=== PATIENT | male | born 1985 | race Caucasian/White ===

== ENCOUNTER 2016-10-08 21:03 | Inpatient (IN) ==
[2016-10-09] MEDS ORDERED: Acetaminophen 325 MG TABLET PO PRN (00:05)
[2016-10-09] MEDS ORDERED: Naloxone 0.4 MG/ML INJ IVP PRN (00:05)
[2016-10-09] MEDS ORDERED: Ondansetron 4 MG/2 ML VIAL IVP PRN (00:05)
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
[2016-10-09] MEDS: 0.9 % Sodium Chloride 1,000 ML IVC SCH (00:52)
[2016-10-09 02:36] LABS: BUN/Creatinine Ratio 9 (6-26); Blood Urea Nitrogen 12 mg/dL (8-26); Carbon Dioxide 26 mEq/L (19-29); Chloride 105 mEq/L (98-109); Potassium 4.2 mEq/L (3.5-4.5); Sodium 141 mEq/L (136-145)
[2016-10-09 02:37] LABS: Alanine Aminotransferase 27 Units/L (0-55); Albumin 3.7 g/dL (3.5-5.0); Albumin/Globulin Ratio 1.1 (1.1-2.2); Alkaline Phosphatase 160 Units/L (38-126); Aspartate Amino Transferase 28 Units/L (5-34); Bilirubin,Total 0.5 mg/dL (0.2-1.2); Calcium 9.2 mg/dL (8.6-10.8); Globulin 3.5 g/dL (2.4-3.5); Glucose 100 mg/dL (70-99); Osmolality,Calculated 292 (280-300); Total Protein 7.2 g/dL (6.0-8.3); eGFR For African Americans > 60 (> 60); eGFR For Non-African Americans > 60 (> 60)
[2016-10-09] MEDS: *HR* Heparin 5,000 UNIT/ML VIAL SQ SCH ×2 (10:27→15:49)
[2016-10-09] MEDS: Folic Acid 1 MG TABLET PO SCH (10:27)
[2016-10-09] MEDS: Thiamine (B-1) 100 MG TABLET PO SCH (10:27)
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
--- NOTE | 2016-10-09 15:34 | Electrocardiograph Report ---
[place] [id number] Test Date: 2016-10-09 Pat Name: Victor M Reid Department: 111 Room: [facility] Gender: M Computer Numeric Control Setter: [id number] : 1985 Requested By: Ward Dee Order Number: [id number] Reading MD: Daisha Aviles Measurements Intervals [place] Rate: 84 P: 60 ND: 138 QRS: 61 QRSD: 86 T: 33 QT: 355 QTc: 396 Interpretive Statements SINUS RHYTHM Electronically Signed On 10-09-2016 15:32:43 EDT by Daisha Aviles
[2016-10-09] MEDS: *HR* OxyCODONE Immed Rel 15 MG TABLET PO PRN (20:08)
[2016-10-10] MEDS: *HR* Heparin 5,000 UNIT/ML VIAL SQ SCH ×3 (00:25→17:20)
[2016-10-10] MEDS: 0.9 % Sodium Chloride 1,000 ML IVC SCH ×3 (01:42→14:37)
[2016-10-10 02:18] LABS: BUN/Creatinine Ratio 15 (6-26); Blood Urea Nitrogen 17 mg/dL (8-26); Calcium 8.7 mg/dL (8.6-10.8); Carbon Dioxide 25 mEq/L (19-29); Chloride 104 mEq/L (98-109); Glucose 91 mg/dL (70-99); Osmolality,Calculated 283 (280-300); Potassium 4.2 mEq/L (3.5-4.5); Sodium 136 mEq/L (136-145); eGFR For African Americans > 60 (> 60); eGFR For Non-African Americans > 60 (> 60)
[2016-10-10] MEDS: *HR* OxyCODONE Immed Rel 15 MG TABLET PO PRN ×3 (05:27→19:00)
[2016-10-10] MEDS: Folic Acid 1 MG TABLET PO SCH (10:12)
[2016-10-10] MEDS: Thiamine (B-1) 100 MG TABLET PO SCH (10:12)
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
--- NOTE | 2016-10-10 13:59 | Event Note ---
Date of Encounter: 10/10/16 Time of Encounter: 13:53 Patient's mother called and informed RN that her son called her few minutes back. Patient mother was concerned about patient's safety as he told her that he would like to " kill " himself. I along with charge nurse and patient's nurse went to patient's room and asked him regarding his conversation. Patient denies any suicidal thoughts or patient denies that he is going to kill himself. Plan: We will get psychiatry opinion I spoke to psychiatrist siphon operator. Psych team will come and evaluate patient. Since we do not have any male psychiatry inpatient bed. If psych team feels that patient needs psych management then we will transfer this patient to other psychiatric facility. Patient is medically clear
[2016-10-10] MEDS ORDERED: Haloperidol Lactate 5 MG/ML VIAL IVP ONE (20:24)
[2016-10-11] MEDS: *HR* OxyCODONE Immed Rel 15 MG TABLET PO PRN ×3 (01:01→13:13)
[2016-10-11] MEDS: *HR* Heparin 5,000 UNIT/ML VIAL SQ SCH ×2 (01:02→10:29)
[2016-10-11 03:44] VITALS: BP 144/95
[2016-10-11] MEDS: 0.9 % Sodium Chloride 1,000 ML IVC SCH (04:39)
[2016-10-11 07:56] LABS: Basophils % 0.2 %; Eosinophils % 0.2 %; Hematocrit 43.6 % (37.5-50.1); Hemoglobin 14.5 g/dL (12.9-16.9); Immature Granulocytes % 0.2 % (0-4); Lymphocytes # 0.5 K/mcL (0.6-4.6); Lymphocytes % 8.4 %; Mean Corpuscular HGB Conc 33.3 g/dL (31.6-35.5); Mean Corpuscular Hemoglobin 27.8 pg (28.0-33.3); Mean Corpuscular Volume 83.5 fL (83.0-100.0); Mean Platelet Volume 10.1 fL (9.4-12.4); Monocytes # 0.5 K/mcL (0.0-1.3); Monocytes % 8.4 %; Platelet Count 185 K/mcL (140-400); Red Blood Count 5.22 M/mcL (4.19-5.50); Red Cell Distribution Width 13.4 % (11.5-14.5); Segmented Neutrophils % 82.6 %
[2016-10-11 08:33] LABS: Alanine Aminotransferase 30 Units/L (0-55); Albumin 3.4 g/dL (3.5-5.0); Albumin/Globulin Ratio 0.9 (1.1-2.2); Alkaline Phosphatase 182 Units/L (38-126); Aspartate Amino Transferase 27 Units/L (5-34); BUN/Creatinine Ratio 7 (6-26); Bilirubin,Total 1.6 mg/dL (0.2-1.2); Blood Urea Nitrogen 9 mg/dL (8-26); Calcium 9.3 mg/dL (8.6-10.8); Carbon Dioxide 24 mEq/L (19-29); Chloride 102 mEq/L (98-109); Globulin 3.9 g/dL (2.4-3.5); Glucose 103 mg/dL (70-99); Osmolality,Calculated 279 (280-300); Potassium 4.1 mEq/L (3.5-4.5); Sodium 135 mEq/L (136-145); Total Protein 7.3 g/dL (6.0-8.3); eGFR For African Americans > 60 (> 60); eGFR For Non-African Americans > 60 (> 60)
[2016-10-11] MEDS ORDERED: Vancomycin 1,500 MG in D5% in Water 250 ML IVPB ONE (09:00)
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
[2016-10-11] MEDS: Folic Acid 1 MG TABLET PO SCH (10:28)
[2016-10-11] MEDS: Thiamine (B-1) 100 MG TABLET PO SCH (10:28)
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
[2016-10-11] MEDS ORDERED: Piperacillin/Tazobactam 3.375 GM in D5% in Water (Mini-Bag+) 100 ML IVPB SCH (14:00)
[2016-10-11] MEDS ORDERED: Aminoglycoside Consult 1 EACH MC ONE (14:19)
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
[2016-10-11] MEDS ORDERED: Vancomycin 1,250 MG in D5% in Water 250 ML IVPB SCH (22:00)
[2016-10-13 07:42] LABS: Acinetobacter baumannii by PCR Not Detected (Not Detect); Candida albicans by PCR Not Detected (Not Detect); Candida glabrata by PCR Not Detected (Not Detect); Candida krusei by PCR Not Detected (Not Detect); Candida parapsilosis by PCR Not Detected (Not Detect); Candida tropicalis by PCR Not Detected (Not Detect); Enterococcus by PCR Not Detected (Not Detect); Escherichia coli by PCR Not Detected (Not Detect); Klebsiella oxytoca by PCR Not Detected (Not Detect); Klebsiella pneumoniae by PCR Not Detected (Not Detect); Pseudomonas aeruginosa by PCR Not Detected (Not Detect); Serratia marcescens by PCR Not Detected (Not Detect); Staphylococcus aureus by PCR ***DETECTED*** (Not Detect); Streptococcus agalactiae(B)PCR Not Detected (Not Detect); Streptococcus by PCR Not Detected (Not Detect); Streptococcus pneumoniae PCR Not Detected (Not Detect); Streptococcus pyogenes (A) PCR Not Detected (Not Detect); mecA Methicillin-Resist Gene Not Detected (Not Detect)
== END 2016-10-11 14:20 | disposition left against medical advice (07) | DRG 918 ==
LOC: 2NENU
PROVIDERS: ADMIT Family Medicine; ATTEND Internal Medicine